=== PATIENT | male | born 1960 | race Caucasian/White ===

== ENCOUNTER 2019-12-26 20:15 | Inpatient (IN) | payer MEDICAID ==
[~2019-12-26] VITALS: Ht 167.6 cm; Wt 101.6 kg
[2019-12-26 20:21] VITALS: BP 178/104
[2019-12-26] MEDS ORDERED: NACL 0.9% 1,000 ML IV SCH (20:28)
--- NOTE | 2019-12-26 20:32 | NUR ---
PT TAKEN TO BED 11
[2019-12-26] MEDS ORDERED: cefTRIAXone 1,000 MG VIAL ONE (20:33)
--- NOTE | 2019-12-26 20:33 | NUR ---
Dr. Michele examining patient.
--- NOTE | 2019-12-26 20:35 | NUR ---
59 YO M BIB SELF FOR C/C OF 10/10 LEFT FOOT PAIN X5 DAYS. PT STATES A BLISTER BEGAN FORMING ON EACH TOE MONDAY WHILE WEARING WORK BOOTS. THE BLISTER POPPED TWO DAYS AGO. SKIN IS OPEN WITH YELLOW SLOUGH. PT STATES HE HAS BEEN TAKING PENICILLIN THAT HE HAD AT HOME WITH NO RELIEF OF SYMPTOMS. DENIES FEVER, COUGH, SOB, AND N/V/D. NKA NO MED HX NO RX
[2019-12-26] MEDS ORDERED: MORPHINE SULFATE 4 MG/ML SYR IVP ONE ×2 (20:40→22:30)
[2019-12-26] MEDS: cefTRIAXone 1,000 MG in DEXT 5% MINI-BAG PLUS 50 ML IV ONE ×2 (20:41→20:46)
[2019-12-26 20:52] LABS: BASOPHILS % (AUTO) 0.5 % (0.0-2.0); EOSINOPHILS # (AUTO) 0.1 K/uL (0-0.4); EOSINOPHILS % (AUTO) 1.9 % (0.0-4.0); HEMATOCRIT 41.8 % (36-52); HEMOGLOBIN 13.8 g/dL (12.0-18.0); LYMPHOCYTES # (AUTO) 1.1 K/uL (2.0-11.5); LYMPHOCYTES % (AUTO) 15.5 % (20.5-51.1); MEAN CORPUSCULAR HEMOGLOBIN 31 pg (27-31); MEAN CORPUSCULAR HGB CONC 33 g/dL (33-37); MEAN CORPUSCULAR VOLUME 94.2 fL (80-94); MONOCYTES # (AUTO) 0.7 K/uL (0.8-1.0); MONOCYTES % (AUTO) 9.8 % (1.7-9.3); NEUTROPHILS # (AUTO) 4.9 K/uL (1.8-7.7); NEUTROPHILS % (AUTO) 72.3 % (42.2-75.2); PLATELET COUNT (AUTO) 270 K/uL (140-450); RED BLOOD CELL COUNT(AUTO) 4.44 MIL/uL (4.20-6.10); RED CELL DISTRIBUTION WIDTH 13.8 % (11.6-13.7); WHITE BLOOD COUNT (AUTO) 6.8 K/uL (4.8-10.8)
--- NOTE | 2019-12-26 20:52 | NUR ---
PT PLACED ON PASSPORT SUPPORT ASSOCIATE/PULSE OX. EQUAL CHEST RISE AND FALL. BED LOCKED AND IN LOWEST POSITION. SIDE RAILS X2.
[2019-12-26 21:08] LABS: ALBUMIN 3.5 g/dL (3.4-5.0); CARBON DIOXIDE 24.7 mmol/L (21-32); CREATININE 1.1 mg/dL (0.6-1.3); POTASSIUM 3.7 mmol/L (3.5-5.1); TOTAL BILIRUBIN 0.4 mg/dL (0.0-1.0)
[2019-12-26] MEDS ORDERED: POTASSIUM CHLORIDE 10 MEQ TABER PO PRN (21:45)
[2019-12-26] MEDS ORDERED: guaiFENesin DM 200/20 MG-10 ML 10 ML UDC PO PRN (21:45)
[2019-12-26] MEDS ORDERED: ZOLPIDEM 5 MG TAB PO PRN (21:45)
[2019-12-26] MEDS ORDERED: ACETAMINOPHEN 325 MG TAB PO PRN (21:45)
[2019-12-26] MEDS ORDERED: ONDANSETRON 4 MG/2 ML VIAL IM/IVP PRN (21:45)
[2019-12-26] MEDS ORDERED: DOCUSATE SODIUM 100 MG GELCAP PO PRN (21:45)
[2019-12-26] MEDS ORDERED: oxyCODONE/APAP 5/325 MG 1 TAB TAB PO PRN (21:45)
[2019-12-26] MEDS ORDERED: KETOROLAC 30 MG/ML VIAL IVP PRN (21:45)
[2019-12-26] MEDS ORDERED: MORPHINE SULFATE 4 MG/ML SYR ONE (22:17)
[2019-12-26 22:19] LABS: PROTHROMBIN TIME 9.4 secs (10.8-13.4)
--- NOTE | 2019-12-26 22:20 | NUR ---
PT STATES HIS LEFT FOOT PAIN IS STILL 10/10. WALED MADE AWARE.
[2019-12-26 22:23] LABS: CHOL/HDL RATIO 3.5 (1-4.5); FREE T4 (FREE THYROXINE) 1.09 ng/dL (0.76-1.46); MAGNESIUM 1.8 mg/dL (1.8-2.4); PHOSPHORUS 3.3 mg/dL (2.5-4.9); THYROID STIMULATING HORMONE 1.03 uIU/mL (0.34-3.74)
--- NOTE | 2019-12-26 22:55 | NUR ---
PT STATES HIS PAIN IS NOW 6/10 MOST IVP OF MORPHINE
[2019-12-26 23:04] VITALS: BP 145/86
--- NOTE | 2019-12-26 23:04 | NUR ---
RECEIVED PT FROM ER NURSE CUCA. PT ON TELE MONITOR SINUS RHYTHM. AOX4 ON ROOM AIR. NO S/S OF RESPIRATORY DISTRESS. RESPIRATIONS EVEN AND UNLABORED. PT HAS LEFT FOOT CELLULITIS, PAIN 6/10, NO DRAINAGE. IV SITE ON LEFT AC 18G ASYMPTOMATIC, PATENT, INTACT. SKIN WARM AND DRY. BED ON LOW POSITION, SIDE RAILS UP X2, CALL LIGHT WITHIN REACH. ORIENTED TO ROOM AND HOSPITAL. WILL CONTINUE TO MONITOR.
--- NOTE | 2019-12-26 23:04 | NUR ---
Patient will be admitted to care of [facility]. Admited to TELE. Will go to room 106 A. Belongings list completed. Report to CANDACE BENAVIDEZ.
[2019-12-26] MEDS: NACL 0.9% 1,000 ML IV SCH (23:36)
[2019-12-27] VITALS: BP 150/96
--- NOTE | 2019-12-27 01:15 | NUR ---
PT ASLEEP IN BED. RESPIRATIONS EVEN AND UNLABORED. NO DISTRESS NOTED. WILL CONTINUE TO MONITOR.
[2019-12-27] MEDS: METOPROLOL 25 MG TAB PO SCH ×3 (01:50→21:10)
--- NOTE | 2019-12-27 01:50 | NUR ---
ADMINISTERED SCHEDULED MEDS. MEDICATION EDUCATION GIVEN. PT VERBALIZED UNDERSTANDING. WILL CONTINUE TO MONITOR.
--- NOTE | 2019-12-27 03:45 | NUR ---
PT RESTING IN BED. EASILY AROUSABLE TO NAME AND LIGHT TOUCH. NO DISTRESS NOTED. NO C/O PAIN AT THIS TIME. WILL CONTINUE TO MONITOR.
[2019-12-27 04:00] VITALS: BP 128/95
--- NOTE | 2019-12-27 04:16 | NUR ---
PT ASLEEP. NO DISTRESS NOTED. WILL CONTINUE TO MONITOR.
--- NOTE | 2019-12-27 05:15 | NUR ---
PT AWAKE RESTING IN BED. NO S/S OF RESPIRATORY DISTRESS. DISCUSSED PLAN OF CARE. PT VERBALIZED UNDERSTANDING. WILL CONTINUE TO MONITOR.
[2019-12-27 06:26] LABS: BASOPHILS % (AUTO) 0.7 % (0.0-2.0); EOSINOPHILS # (AUTO) 0.1 K/uL (0-0.4); EOSINOPHILS % (AUTO) 2.2 % (0.0-4.0); HEMATOCRIT 38.8 % (36-52); HEMOGLOBIN 12.8 g/dL (12.0-18.0); LYMPHOCYTES # (AUTO) 1.2 K/uL (2.0-11.5); LYMPHOCYTES % (AUTO) 24.7 % (20.5-51.1); MEAN CORPUSCULAR HEMOGLOBIN 31 pg (27-31); MEAN CORPUSCULAR HGB CONC 33 g/dL (33-37); MEAN CORPUSCULAR VOLUME 94.4 fL (80-94); MONOCYTES # (AUTO) 0.6 K/uL (0.8-1.0); MONOCYTES % (AUTO) 11.9 % (1.7-9.3); NEUTROPHILS # (AUTO) 2.9 K/uL (1.8-7.7); NEUTROPHILS % (AUTO) 60.5 % (42.2-75.2); PLATELET COUNT (AUTO) 236 K/uL (140-450); RED BLOOD CELL COUNT(AUTO) 4.11 MIL/uL (4.20-6.10); RED CELL DISTRIBUTION WIDTH 13.6 % (11.6-13.7); WHITE BLOOD COUNT (AUTO) 4.8 K/uL (4.8-10.8)
--- NOTE | 2019-12-27 07:20 | NUR ---
ENDORSED PT TO DAY RN FOR CONTINUITY OF CARE.
[2019-12-27 07:22] LABS: ANION GAP 13.6 (8-16); CARBON DIOXIDE 25.7 mmol/L (21-32); CREATININE 0.8 mg/dL (0.6-1.3); POTASSIUM 4.3 mmol/L (3.5-5.1)
[2019-12-27 08:00] VITALS: BP 169/94
--- NOTE | 2019-12-27 08:00 | NUR ---
RECEIVED REPORT FROM CANDACE BENAVIDEZ. PATIENT ALERT AWAKE ORIENTED X4, NOT IN ANY DISTRESS NOTED. INITIAL ASSESSMENT INITIATED. WITH IVF, INFILTRATED AND WILL RE- INSERT. ON HEART MONITOR SHOWS SR. NEEDS ATTENDED. WILL CONTINUE TO MONITOR.
[2019-12-27] MEDS: PANTOPRAZOLE 40 MG TABEC PO SCH (08:18)
--- NOTE | 2019-12-27 08:59 | NUR ---
PATIENT HAS BEEN SCREENED AND CATEGORIZED MODERATE NUTRITION RISK. PATIENT WILL BE SEEN WITHIN 3-5 DAYS OF ADMISSION. 12/29/19 12/31/[address]
--- NOTE | 2019-12-27 09:00 | NUR ---
DR. EEMRSON NOTIFIED DR. DUARTE FOR CONSULT, HE WILL SEE PATIENT TODAY.
--- NOTE | 2019-12-27 11:24 | NUR ---
WOUND CARE EVALUATION NOTE: REASON FOR EVALUATION: LEFT FOOT/TOES WOUND SKIN ASSESSMENT DONE WITH THIS 59 Y/O MALE PT ADMITTED TO [facility] WITH INITIAL DX OF LEFT FOOT PAIN. PT IS AAX4, ABLE TO TURN AND REPOSITION WITHOUT ASSISTANCE, SKIN IS WARM AND DRY. BLE NO HAIR GROWTH, NO EDEMA TO BILATERAL LOWER LEGS. LEFT DORSAL PEDAL PULSES PRESENT AND NORMAL, +1 EDEMA. PLAN OF CARE DISCUSSED WITH PRIMARY RN AND PT. PT. VERBALIZING UNDERSTANDING. PER PRIMARY RN DR. DUARTE, PODIATRY, IS FOLLOWING THE CASE AND REQUEST X-RAY FOR LEFT FOOT. INTEGUMENTARY: -CELLULITIS TO LEFT DORSAL FOOT EXTENDED TO 5 TOES AND INTERSPACES, SKIN WEEPING SEROUS DRAINAGE, ERYTHEMA, SWELLING, +1 EDEMAS, NO ODOR SKIN VERY THIN. PAIN 6/10 -LEFT AND RIGHT HEELS THIN CALLUS RECOMMENDATIONS: -X-RAY TO LEFT FOOT -RINSE LEFT FOOT/TOES AND INTERSPACES WITH NS, PAT DRY, APPLY ADAPTIC DRESSING TO TOES AND INTERSPACES,COVER WITH DRY DRESSING ,WRAP WITH KERLIX ROLLS QD AND PRN IF SOILING. -OFFLOAD BILATERAL HEELS BY PLACING PILLOWS UNDER CALVES UNLESS OTHERWISE CONTRAINDICATED -CONTINUE TO FOLLOW RD RECOMMENDATIONS PLEASE CONTACT WOUND CARE NURSE FOR ANY QUESTION AND CHANGE OF WOUND CONDITION.
[2019-12-27] MEDS ORDERED: GAUZE TP PRN (11:30)
--- NOTE | 2019-12-27 11:43 | NUR ---
DISTRIBUTION SUPERVISOR NOTE: Patient's Orientation Unable To Assess Information Provided By ALAN VARGAS - ROOMMATE/FRIEND Comments SW AWAS UNABLE TO MEET PATIENT AT BEDSIDE. Store Operations Specialist, Realtionship and Phone Number ALAN VARGAS FRIEND [phone] Healthcare Power of Accountant Bookkeeper No Does Patient Have a POLST No Identifying Problems No Social Work Triggers Is A Social Work Consult Needed No Mandate Report Filed No Explanation Of Identifying Problems PATIENT IS A 59-YEAR-OLD MALE ADMITTED FOR LEFT FOOT CELLULITIS. PATIENT HAS NO PERTINENT PMHX. Admitted From Home Pre-Admission Level Of Functioning Status Independent/Ambulatory Prior Resources/Services Used In Last 12 Months No Prior Resources Used Prior DME No Prior DME Used Living Situation Lives With Friend/Other House Rents A Room Patient Had Caregiver No Home Support No Caregiver Issues Financial Issues No Known Financial Issue Referral To The Financial Counselor Needed No Factors/Needs No D/C Needs Identified Pt/Rep Participated In Discharge Plan Yes Patient/Family Agress With Discharge Plan Yes Discharge Plan Comments TENTATIVE DISCHARGE PLAN IS FOR PATIENT TO RETURN HOME. DC Plan Status Initiated
[2019-12-27 12:49] VITALS: BP 155/100
[2019-12-27] MEDS ORDERED: GAUZE TP SCH (13:00)
[2019-12-27] MEDS: NACL 0.9% 1,000 ML IV SCH ×2 (14:00→17:45)
[2019-12-27] MEDS ORDERED: FLUCONAZOLE 200 MG/NS PREMIX 100 ML IV SCH (15:00)
[2019-12-27 16:33] VITALS: BP 153/85
--- NOTE | 2019-12-27 16:52 | NUR ---
DIFLUCAN STARTED AND INFUSING WELL, NO REACTION NOTED.
--- NOTE | 2019-12-27 18:36 | NUR ---
CHANGED ROOM FROM 106A TO 108A. PATIENT RESTING IN BED, DENIES PAIN. ATE WITH GOOD APPETITE. WILL CONTINUE TO MONITOR.
--- NOTE | 2019-12-27 19:20 | NUR ---
RECEIVED BEDSIDE ENDORSEMENT FROM AM SHIFT RN. PATIENT IS AOX4. RESPIRATION EVEN AND UNLABORED. NO SOB. ON RA. DENIES PAIN. ASSESSMENT DONE. LEFT FOOT WRAP WITH DRESSING, DRY AND INTACT. PLAN OF CARE DISCUSSED. CALL LIGHT WITHIN REACH.
[2019-12-27 20:00] VITALS: BP 140/73
[2019-12-27] MEDS ORDERED: cefTRIAXone 1,000 MG VIAL ONE (20:58)
--- NOTE | 2019-12-27 21:10 | NUR ---
ROCEPHIN IV GIVEN ORDERED, TOLERATED WELL, NO A/R NOTED. OTHER DUE MED GIVEN ORDERED, MED EDUCATION PROVIDED.
--- NOTE | 2019-12-27 21:30 | NUR ---
SWABBED LEFT FOOT FOR CULTURE, RE-WRAPPED WITH NEW KERLIX AND ELIF BANDAGE.
[2019-12-28] VITALS: BP 145/79
--- NOTE | 2019-12-28 00:12 | NUR ---
PATIENT SLEEPING, RESPIRATION EVEN AND UNLABORED.
[2019-12-28] MEDS: NACL 0.9% 1,000 ML IV SCH (01:45)
--- NOTE | 2019-12-28 01:45 | NUR ---
IVF FINISHED, HANGED A NEW IVF NS 1L AT 100 CC/HR. IV SITE INTACT AND PATENT.
--- NOTE | 2019-12-28 04:43 | NUR ---
CHECKED PATIENT, ASLEEP, NO SOB NOTED, CALL LIGHT WITHIN REACH.
--- NOTE | 2019-12-28 06:26 | NUR ---
PATIENT IS NOT IN ANY ACUTE DISTRESS, NO C/O PAIN, ALL NEEDS ATTENDED, KEPT CLEAN, DRY AND COMFORTABLE, CALL LIGHT WITHIN REACH.
[2019-12-28 07:10] LABS: T4 (THYROXINE) 7.1 ug/dL (4.5-12.0)
--- NOTE | 2019-12-28 07:34 | NUR ---
PATIENT IS IN STABLE CONDITION, BEDSIDE ENDORSEMENT GIVEN TO CANDACE ACKERMAN FOR CONTINUITY OF CARE.
--- NOTE | 2019-12-28 07:35 | NUR ---
RECEIVED BEDSIDE REPORT FROM AM SHIFT NURSE. PATIENT IS AOX4 AND ABLE TO MAKE NEEDS KNOWN. RESPIRATIONS ARE EVEN AND UNLABORED TO ROOM AIR. SKIN IS WARM AND DRY. LEFT FOOT WRAPPED WITH DRESSING, DRY AND INTACT. ABDOMEN IS SOFT. PT DENIES ANY PAIN OR DISCOMFORT AT THIS TIME. PLAN OF CARE DISCUSSED. SAFETY MEASUERS IN PLACE. CALL LIGHT WITHIN REACH. WILL CONTINUE TO MONITOR.
[2019-12-28 08:00] VITALS: BP 159/94
[2019-12-28] MEDS: METOPROLOL 25 MG TAB PO SCH (08:11)
[2019-12-28] MEDS: PANTOPRAZOLE 40 MG TABEC PO SCH (08:11)
--- NOTE | 2019-12-28 08:14 | NUR ---
VITAL SIGNS TAKEN. SCHEDULED MEDS GIVEN ORDERED. PT DENIES ANY PAIN OR DISCOMFORT AT THIS TIME. NO REQUESTS MADE. SAFETY MEASURES IN PLACE. CALL LIGHT WITHIN REACH. WILL CONTINUE TO MONITOR.
[2019-12-28 08:17] LABS: BASOPHILS % (AUTO) 0.9 % (0.0-2.0); EOSINOPHILS # (AUTO) 0.1 K/uL (0-0.4); EOSINOPHILS % (AUTO) 2.6 % (0.0-4.0); HEMATOCRIT 40.9 % (36-52); HEMOGLOBIN 13.2 g/dL (12.0-18.0); LYMPHOCYTES % (AUTO) 19.9 % (20.5-51.1); MEAN CORPUSCULAR HEMOGLOBIN 31 pg (27-31); MEAN CORPUSCULAR HGB CONC 32 g/dL (33-37); MEAN CORPUSCULAR VOLUME 94.8 fL (80-94); MONOCYTES # (AUTO) 0.5 K/uL (0.8-1.0); NEUTROPHILS # (AUTO) 3.4 K/uL (1.8-7.7); NEUTROPHILS % (AUTO) 67.6 % (42.2-75.2); PLATELET COUNT (AUTO) 241 K/uL (140-450); RED BLOOD CELL COUNT(AUTO) 4.31 MIL/uL (4.20-6.10); WHITE BLOOD COUNT (AUTO) 5.1 K/uL (4.8-10.8)
[2019-12-28 08:24] LABS: ANION GAP 10.8 (8-16); CARBON DIOXIDE 27.6 mmol/L (21-32); CREATININE 0.7 mg/dL (0.6-1.3); POTASSIUM 4.4 mmol/L (3.5-5.1)
[2019-12-28] MEDS ORDERED: FLUC150T PO (09:10)
[2019-12-28] MEDS ORDERED: LISI10TA11 PO (09:10)
[2019-12-28] MEDS ORDERED: CEPH250C16 PO (09:10)
[2019-12-28 09:26] VITALS: BP 159/94
--- NOTE | 2019-12-28 10:00 | NUR ---
DISCHARGE ORDERS GIVEN. DISCHARGE TEACHINGS DONE. DISCHARGE PAPERWORKS SIGNED. CURRENTLY WAITING FOR RIDE.
--- NOTE | 2019-12-28 10:35 | NUR ---
PT WHEELED OUT VIA WHEELCHAIR. PT IS IN STABLE CONDITION. Addendum: 12/28/19 at 1037 by Santosh Roque RN IV ACCESS REMOVED, ID BAND REMOVED, BELONGINGS ON HAND.
== END 2019-12-28 10:30 | disposition home or self-care (01) | DRG 720 ==
LOC: MED 20:15 → MTU 21:45
PROVIDERS: ADMIT Family Medicine; ATTEND Family Medicine
DX: A41.9 Sepsis, unspecified organism (principal); L03.116 Cellulitis of left lower limb; L02.612 Cutaneous abscess of left foot; J98.11 Atelectasis; I10 Essential (primary) hypertension; E78.5 Hyperlipidemia, unspecified; Z79.899 Other long term (current) drug therapy; B35.3 Tinea pedis
CPT/HCPCS: 36415; 71045; 73630; 80048; 80053; 82150; 82948; 83036; 83605; 83690; 83735; 83880; 84100; 84436; 84439; 84443; 84479; 84484; 85025; 85610; 85730; 87040; 87070; 87075; 87081; 87186; 87205; 93005; 96365; 96375; 99285; J0696; J1450; J1885; J2270; J7030; J7060; Q0092

== ENCOUNTER 2021-09-09 12:14 | Emergency (ER) | payer SELFPAY ==
[~2021-09-09] VITALS: Ht 162.6 cm; Wt 105.3 kg
[~2021-09-09 12:14] MED LIST: CEPH250C16 PO; FLUC150T PO; LISI-486 PO
[2021-09-09 12:22] VITALS: BP 154/93
--- NOTE | 2021-09-09 12:28 | NUR ---
Patient ambulated with steady gait to bed 2.
[2021-09-09] MEDS ORDERED: CYCLOBENZAPRINE 10 MG TAB PO ONE (12:40)
[2021-09-09] MEDS ORDERED: KETOROLAC 30 MG/ML VIAL IM ONE (12:40)
--- NOTE | 2021-09-09 13:11 | NUR ---
61YO M C/O RIGHT UPPER BACK PAIN X 4 DAYS. PT STATES PAIN 9/10, SHARP, AGGARAVATED BY MOVEMENT/LIFTING RIGHT ARM. DENIES TRAUMA OR INJURY TO AREA. TOOK TYLENOL LAST NIGHT WHICH PROVIDED NO RELIEF. PMH: NONE
[2021-09-09] MEDS ORDERED: LID5T TP (14:10)
[2021-09-09] MEDS ORDERED: DICL100G5 TP (14:10)
[2021-09-09] MEDS ORDERED: IBUP-2213 PO (14:10)
[2021-09-09] MEDS ORDERED: CYCL-711 PO (14:10)
[2021-09-09] MEDS ORDERED: LIDOCAINE 5% 1 EA PATCH TP SCH ×2 (14:25→14:31)
[2021-09-09] MEDS ORDERED: LIDOCAINE 5% 1 EA PATCH TP ONE (14:26)
[2021-09-09 14:30] VITALS: BP 154/93
--- NOTE | 2021-09-09 14:31 | NUR ---
Patient discharged with v/s stable. Written and verbal after care instructions given and explained. Patient alert, oriented and verbalized understanding of instructions. Ambulatory with steady gait. All questions addressed prior to discharge. ID band removed. Patient advised to follow up with PMD. Rx of FLEXERIL, DICLOFENAC, IBUPROFEN, LIDOCAINE PATCH given. Patient educated on indication of medication including possible reaction and side effects. Opportunity to ask questions provided and answered.
[2021-09-10] MEDS ORDERED: LIDOCAINE 5% 1 EA PATCH TP SCH (09:00)
== END 2021-09-09 14:31 | disposition home or self-care (01) ==
LOC: MED 12:14
DX: S29.012A Strain of muscle and tendon of back wall of thorax, initial encounter (principal); Z79.899 Other long term (current) drug therapy; X58.XXXA Exposure to other specified factors, initial encounter; Y93.89 Activity, other specified; Y92.89 Other specified places as the place of occurrence of the external cause; Y99.8 Other external cause status
CPT/HCPCS: 72072; 96372; 99283; J1885